=== PATIENT | female | born 1980 | race Caucasian/White ===

== ENCOUNTER 2016-11-25 03:44 | Emergency (ER) | payer SELFPAY ==
[~2016-11-25] VITALS: Ht 152.4 cm; Wt 66.0 kg
[~2016-11-25 03:44] MED LIST: ALBU8.5H IH; ASPI81 PO; DICL50TA9 PO; IBUP-2070 PO; OMEP20 PO; SERT50TA12 PO
[2016-11-25] MEDS ORDERED: PROCHLORPERAZINE EDISYLATE 5 MG/ML 2 ML VIAL IVP ONE (04:15)
[2016-11-25] MEDS ORDERED: HYDROmorphone 2 MG/ML SYRINGE IVP ONE (04:15)
[2016-11-25] MEDS ORDERED: SODIUM CHLORIDE 0.9% 1,000 ML IV ONE (04:15)
[2016-11-25 04:22] LABS: BASOPHILS # (AUTO) 0.02 K/uL (0.00-0.20); BASOPHILS % (AUTO) 0.2 % (0.0-2.0); EOSINOPHILS % (AUTO) 0.04 % (1.0-6.0); HEMATOCRIT 42.3 % (36-46); HEMOGLOBIN 14.1 g/dL (12.0-16.0); LYMPHOCYTES # (AUTO) 0.8 K/uL (1.0-4.8); LYMPHOCYTES % (AUTO) 6.8 % (22.0-44.0); MEAN CORPUSCULAR HEMOGLOBIN 28.7 pg (26.0-34.0); MEAN CORPUSCULAR HGB CONC 33.3 G/dL (31.0-37.0); MEAN CORPUSCULAR VOLUME 86 fL (80-100); MONOCYTES # (AUTO) 0.4 K/uL (0.1-1.0); MONOCYTES % (AUTO) 3.2 % (2.0-9.0); NEUTROPHILS # (AUTO) 10.9 K/uL (1.8-7.7); PLATELET COUNT (AUTO) 154 K/uL (150-450); RED CELL DISTRIBUTION WIDTH 14.5 % (11.5-14.5); WHITE BLOOD COUNT (AUTO) 12.1 K/uL (4.5-11.0)
[2016-11-25 04:27] LABS: NEUTROPHILS % (AUTO) 89.8 % (40.0-70.0)
[2016-11-25 04:34] LABS: ANION GAP 8 mmol/L (8-16); CALCIUM, TOTAL 8.7 mg/dL (8.8-10.5); CARBON DIOXIDE 26 mmol/L (22-29); CHLORIDE 103 mmol/L (98-107); CREATININE 0.86 mg/dL (0.60-1.30); GLOMERULAR FILTR. RATE CALC > 60 mL/min (>60); POTASSIUM 3.1 mmol/L (3.5-5.1); SODIUM SERUM 137 mmol/L (136-145); UREA NITROGEN, BLOOD 10 mg/dL (7-18)
[2016-11-25 04:42] LABS: ALANINE AMINOTRANSFERASE 25 U/L (12-78); ALBUMIN 3.8 g/dL (3.4-5.0); AMYLASE 58 U/L (25-115); ASPARTATE AMINOTRANSFERASE 17 U/L (15-37); BILIRUBIN,TOTAL 0.5 mg/dL (0.1-1.0); TOTAL PROTEIN, SERUM 7.7 g/dL (6.4-8.2)
[2016-11-25] MEDS ORDERED: PANTOPRAZOLE SODIUM 40 MG/VIAL IVP ONE (06:45)
[2016-11-25 08:08] LABS: APPEARANCE,URINE CLOUDY (CLEAR); GLUCOSE, URINE (UA) NEGATIVE (NEGATIVE); KETONES,URINE 40 mg/dL (NEGATIVE); LEUKOCYTE ESTERASE ,URINE SMALL (NEGATIVE); OCCULT BLOOD,URINE NEGATIVE (NEGATIVE); PROTEIN,URINE POS 1+ (NEGATIVE)
[2016-11-25 08:15] LABS: ADD UA MICROSCOPIC YES
[2016-11-25 08:26] LABS: RBC,URINE 0-2 /HPF (0-2); SQUAMOUS EPITHELIAL CELL,UR Many /LPF (None Seen)
[2016-11-25] MEDS ORDERED: MAG HYDROX/AL HYDROX/SIMETH ES 30 ML SUSPENSION UDCUP PO ONE (10:00)
[2016-11-25 11:16] VITALS: BP 110/70
== END 2016-11-25 11:49 | disposition home or self-care (01) ==
LOC: EMS 03:45
DX: K27.9 Peptic ulcer, site unspecified, unspecified as acute or chronic, without hemorrhage or perforation (principal); K29.00 Acute gastritis without bleeding; J45.909 Unspecified asthma, uncomplicated; Z86.73 Personal history of transient ischemic attack (TIA), and cerebral infarction without residual deficits; N83.209 Unspecified ovarian cyst, unspecified side; Z88.6 Allergy status to analgesic agent
CPT/HCPCS: 36415; 74176; 80053; 81001; 82150; 83690; 84703; 85025; 87086; 96361; 96374; 96375; 99285; C9113; J0780; J1170; J7030

== ENCOUNTER 2019-04-29 01:08 | Emergency (ER) | payer OTHER ==
[~2019-04-29] VITALS: Ht 152.4 cm; Wt 76.4 kg
[~2019-04-29 01:08] MED LIST changes: -ALBU8.5H IH; +ALBU8.5H8 IH; -ASPI81 PO; -DICL50TA9 PO; -IBUP-2070 PO; -OMEP20 PO; -SERT50TA12 PO
[2019-04-29 01:53] LABS: APPEARANCE,URINE CLEAR (CLEAR); BILIRUBIN,URINE NEGATIVE (NEGATIVE); GLUCOSE, URINE (UA) NEGATIVE (NEGATIVE); KETONES,URINE NEGATIVE (NEGATIVE); LEUKOCYTE ESTERASE ,URINE TRACE (NEGATIVE); NITRATE,URINE NEGATIVE (NEGATIVE); OCCULT BLOOD,URINE NEGATIVE (NEGATIVE); PROTEIN,URINE NEGATIVE (NEGATIVE); UROBILINOGEN,URINE 0.2 mg/dL (<=1.0)
[2019-04-29 02:01] LABS: BACTERIA,URINE None Seen /HPF (None Seen); RBC,URINE None Seen /HPF (0-2); SQUAMOUS EPITHELIAL CELL,UR Rare /LPF (None Seen)
[2019-04-29 02:19] LABS: BASOPHILS % (AUTO) 0.6 % (0.0-2.0); EOSINOPHILS % (AUTO) 5.6 % (1.0-6.0); HEMATOCRIT 39.9 % (36-46); HEMOGLOBIN 13.5 g/dL (12.0-16.0); LYMPHOCYTES # (AUTO) 2.4 K/uL (1.0-4.8); MEAN CORPUSCULAR HEMOGLOBIN 29.9 pg (26.0-34.0); MEAN CORPUSCULAR HGB CONC 33.9 G/dL (31.0-37.0); MEAN CORPUSCULAR VOLUME 88 fL (80-100); MONOCYTES # (AUTO) 0.6 K/uL (0.1-1.0); MONOCYTES % (AUTO) 8.2 % (2.0-9.0); NEUTROPHILS # (AUTO) 3.8 K/uL (1.8-7.7); NEUTROPHILS % (AUTO) 52.6 % (40.0-70.0); PLATELET COUNT (AUTO) 216 K/uL (150-450); RED BLOOD CELL COUNT(AUTO) 4.53 MIL/uL (4.00-5.20)
[2019-04-29 02:40] LABS: ANION GAP 8 mmol/L (8-16); CALCIUM, TOTAL 8.6 mg/dL (8.8-10.5); CARBON DIOXIDE 27 mmol/L (22-29); CHLORIDE 105 mmol/L (98-107); CREATININE 0.51 mg/dL (0.60-1.30); GLOMERULAR FILTR. RATE CALC > 60 mL/min (>60); GLUCOSE,RANDOM 102 mg/dL (70-110); POTASSIUM 3.4 mmol/L (3.5-5.1); SODIUM SERUM 140 mmol/L (136-145); UREA NITROGEN, BLOOD 14 mg/dL (7-18)
[2019-04-29 02:51] LABS: ALANINE AMINOTRANSFERASE 41 U/L (12-78); ALBUMIN 3.4 g/dL (3.4-5.0); ALKALINE PHOSPHATASE 100 U/L (46-116); ASPARTATE AMINOTRANSFERASE 21 U/L (15-37); BILIRUBIN,TOTAL 0.2 mg/dL (0.1-1.0); HCG,QUANTITATIVE < 1 mIU/mL (0-6); LIPASE 125 U/L (73-393); TOTAL PROTEIN, SERUM 6.9 g/dL (6.4-8.2)
[2019-04-29] MEDS ORDERED: KETOROLAC TROMETHAMINE 30 MG/ML VIAL IVP ONE (03:15)
[2019-04-29] MEDS ORDERED: HYDROmorphone 2 MG/ML SYRINGE IVP ONE (03:15)
[2019-04-29] MEDS ORDERED: ONDANSETRON HCL 4 MG/2 ML VIAL IVP ONE (03:15)
[2019-04-29] MEDS ORDERED: SODIUM CHLORIDE 0.9% 1,000 ML IV ONE (03:15)
[2019-04-29] MEDS ORDERED: MAG HYDROX/AL HYDROX/SIMETH ES 30 ML SUSPENSION UDCUP PO ONE (04:45)
[2019-04-29] MEDS ORDERED: POTASSIUM CHLORIDE 10% 40 MEQ/30 ML LIQUID UDCUP PO ONE (04:45)
[2019-04-29 04:50] VITALS: BP 103/74
== END 2019-04-29 05:35 | disposition home or self-care (01) ==
LOC: EMS 01:08
DX: E86.0 Dehydration (principal); R10.30 Lower abdominal pain, unspecified
CPT/HCPCS: 36415; 74176; 80053; 81001; 83690; 84702; 85025; 96361; 96374; 96375; 99284; J1170; J1885; J2405; J7030

== ENCOUNTER 2019-07-30 18:46 | Emergency (ER) | payer OTHER ==
[~2019-07-30] VITALS: Ht 152.4 cm; Wt 75.0 kg
[2019-07-30 18:49] VITALS: BP 116/72
[2019-07-30] MEDS ORDERED: [UNRECOGNIZED DRUG - REMARK] PO (18:57)
[2019-07-30 22:29] LABS: BASOPHILS % (AUTO) 0.4 % (0.0-2.0); EOSINOPHILS % (AUTO) 4.6 % (1.0-6.0); HEMATOCRIT 40.4 % (36-46); HEMOGLOBIN 13.9 g/dL (12.0-16.0); LYMPHOCYTES # (AUTO) 2.8 K/uL (1.0-4.8); MEAN CORPUSCULAR HEMOGLOBIN 29.4 pg (26.0-34.0); MEAN CORPUSCULAR HGB CONC 34.3 G/dL (31.0-37.0); MEAN CORPUSCULAR VOLUME 86 fL (80-100); MONOCYTES # (AUTO) 0.4 K/uL (0.1-1.0); MONOCYTES % (AUTO) 5.6 % (2.0-9.0); NEUTROPHILS # (AUTO) 3.8 K/uL (1.8-7.7); NEUTROPHILS % (AUTO) 51.4 % (40.0-70.0); PLATELET COUNT (AUTO) 253 K/uL (150-450); RED BLOOD CELL COUNT(AUTO) 4.71 MIL/uL (4.00-5.20); RED CELL DISTRIBUTION WIDTH 12.6 % (11.5-14.5)
[2019-07-30 22:38] LABS: ANION GAP 5 mmol/L (8-16); CALCIUM, TOTAL 8.8 mg/dL (8.8-10.5); CARBON DIOXIDE 30 mmol/L (22-29); CHLORIDE 106 mmol/L (98-107); CREATININE 0.87 mg/dL (0.60-1.30); GLOMERULAR FILTR. RATE CALC > 60 mL/min (>60); GLUCOSE,RANDOM 99 mg/dL (70-110); POTASSIUM 3.8 mmol/L (3.5-5.1); SODIUM SERUM 141 mmol/L (136-145); UREA NITROGEN, BLOOD 14 mg/dL (7-18)
[2019-07-30 22:49] LABS: ALANINE AMINOTRANSFERASE 23 U/L (12-78); ALBUMIN 3.7 g/dL (3.4-5.0); ALKALINE PHOSPHATASE 101 U/L (46-116); ASPARTATE AMINOTRANSFERASE 15 U/L (15-37); BILIRUBIN,TOTAL 0.2 mg/dL (0.1-1.0); HCG,QUANTITATIVE 1 mIU/mL (0-6); LIPASE 144 U/L (73-393); TOTAL PROTEIN, SERUM 7.6 g/dL (6.4-8.2)
== END 2019-07-31 | disposition left against medical advice (07) ==
LOC: EMS 18:46
DX: R10.9 Unspecified abdominal pain (principal); Z53.21 Procedure and treatment not carried out due to patient leaving prior to being seen by health care provider

== ENCOUNTER 2021-12-27 20:15 | Emergency (ER) | payer OTHER ==
[~2021-12-27] VITALS: Ht 167.6 cm; Wt 77.3 kg
[~2021-12-27 20:15] MED LIST changes: -ALBU8.5H8 IH; +[UNRECOGNIZED DRUG - REMARK] PO
[2021-12-27] MEDS ORDERED: ALBU8HFA IH (20:22)
[2021-12-27 20:49] LABS: BASOPHILS % (AUTO) 0.5 % (0.0-2.0); EOSINOPHILS % (AUTO) 2.9 % (1.0-6.0); HEMATOCRIT 39.8 % (36-46); HEMOGLOBIN 13.8 g/dL (12.0-16.0); LYMPHOCYTES # (AUTO) 2.2 K/uL (1.0-4.8); LYMPHOCYTES % (AUTO) 26.5 % (22.0-44.0); MEAN CORPUSCULAR HEMOGLOBIN 29.8 pg (26.0-34.0); MEAN CORPUSCULAR HGB CONC 34.7 G/dL (31.0-37.0); MEAN CORPUSCULAR VOLUME 86 fL (80-100); MONOCYTES # (AUTO) 0.4 K/uL (0.1-1.0); MONOCYTES % (AUTO) 5.2 % (2.0-9.0); NEUTROPHILS # (AUTO) 5.4 K/uL (1.8-7.7); NEUTROPHILS % (AUTO) 64.9 % (40.0-70.0); PLATELET COUNT (AUTO) 265 K/uL (150-450); RED BLOOD CELL COUNT(AUTO) 4.63 MIL/uL (4.00-5.20); RED CELL DISTRIBUTION WIDTH 13.6 % (11.5-14.5)
[2021-12-27 20:55] LABS: ANION GAP 6 mmol/L (8-16); CALCIUM, TOTAL 9.4 mg/dL (8.8-10.5); CARBON DIOXIDE 29 mmol/L (22-29); CHLORIDE 104 mmol/L (98-107); CREATININE 0.76 mg/dL (0.60-1.30); GLUCOSE,RANDOM 131 mg/dL (70-110); SODIUM SERUM 139 mmol/L (136-145); UREA NITROGEN, BLOOD 14 mg/dL (7-18)
[2021-12-27 20:56] LABS: GLOMERULAR FILTR. RATE CALC > 60 mL/min (>60)
[2021-12-27 21:00] LABS: ALANINE AMINOTRANSFERASE 63 U/L (12-78); ALBUMIN 3.8 g/dL (3.4-5.0); ALKALINE PHOSPHATASE 107 U/L (46-116); ASPARTATE AMINOTRANSFERASE 27 U/L (15-37); BILIRUBIN,TOTAL 0.3 mg/dL (0.1-1.0); TOTAL PROTEIN, SERUM 7.5 g/dL (6.4-8.2)
[2021-12-27] MEDS ORDERED: IBUP-2070 PO (22:36)
[2021-12-27] MEDS ORDERED: ACET-66 PO (22:36)
[2021-12-27] MEDS ORDERED: LIDO700A15 TP (22:36)
[2021-12-27] MEDS ORDERED: KETOROLAC TROMETHAMINE 30 MG/ML VIAL IM ONE (22:45)
[2021-12-27 23:00] VITALS: BP 139/70
== END 2021-12-27 23:02 | disposition home or self-care (01) ==
LOC: EMS 20:17
DX: R07.89 Other chest pain (principal); J45.909 Unspecified asthma, uncomplicated; Z86.73 Personal history of transient ischemic attack (TIA), and cerebral infarction without residual deficits; Z87.42 Personal history of other diseases of the female genital tract; Z98.890 Other specified postprocedural states; Z88.5 Allergy status to narcotic agent
CPT/HCPCS: 99285; 71045; 80053; 84484; 85025; 36415; 93005; 96372; J1885

== ENCOUNTER 2023-09-13 03:00 | Emergency (ER) | payer OTHER ==
[~2023-09-13] VITALS: Ht 152.4 cm; Wt 79.5 kg
[~2023-09-13 03:00] MED LIST changes: +ACET-66 PO; +ALBU18HF12 IH; +IBUP-1492 PO; +LIDO700A15 TP
[2023-09-13 03:05] VITALS: TEMP 98.2
[2023-09-13 03:32] LABS: APPEARANCE,URINE CLEAR (CLEAR); BILIRUBIN,URINE NEGATIVE (NEGATIVE); COLOR,URINE LIGHT YELLOW (YELLOW); GLUCOSE, URINE (UA) NEGATIVE (NEGATIVE); KETONES,URINE NEGATIVE (NEGATIVE); LEUKOCYTE ESTERASE ,URINE NEGATIVE (NEGATIVE); NITRATE,URINE NEGATIVE (NEGATIVE); OCCULT BLOOD,URINE NEGATIVE (NEGATIVE); PH,URINE 6.5 (5.0-8.0); PROTEIN,URINE NEGATIVE (NEGATIVE); SPECIFIC GRAVITIY, URINE 1.015 (1.003-1.030); UROBILINOGEN,URINE <=1.0 mg/dL (<=1.0)
[2023-09-13] MEDS: SODIUM CHLORIDE 0.9% 1,000 ML IV ONE (04:20)
[2023-09-13] MEDS: KETOROLAC TROMETHAMINE 30 MG/ML VIAL IVP ONE (04:20)
[2023-09-13 04:21] LABS: BASOPHILS % (AUTO) 0.3 % (0.0-2.0); EOSINOPHILS % (AUTO) 3.9 % (1.0-6.0); HEMATOCRIT 38.9 % (36-46); HEMOGLOBIN 13.6 g/dL (12.0-16.0); LYMPHOCYTES # (AUTO) 2.5 K/uL (1.0-4.8); LYMPHOCYTES % (AUTO) 33.3 % (22.0-44.0); MEAN CORPUSCULAR HEMOGLOBIN 30.8 pg (26.0-34.0); MEAN CORPUSCULAR VOLUME 88 fL (80-100); MONOCYTES # (AUTO) 0.6 K/uL (0.1-1.0); MONOCYTES % (AUTO) 7.8 % (2.0-9.0); NEUTROPHILS # (AUTO) 4.1 K/uL (1.8-7.7); NEUTROPHILS % (AUTO) 54.7 % (40.0-70.0); PLATELET COUNT (AUTO) 235 K/uL (150-450); RED BLOOD CELL COUNT(AUTO) 4.42 MIL/uL (4.00-5.20); RED CELL DISTRIBUTION WIDTH 13.5 % (11.5-14.5); WHITE BLOOD COUNT (AUTO) 7.5 K/uL (4.5-11.0)
[2023-09-13 04:29] LABS: ANION GAP 10 mmol/L (8-16); CALCIUM, TOTAL 8.8 mg/dL (8.8-10.5); CARBON DIOXIDE 26 mmol/L (22-29); CHLORIDE 104 mmol/L (98-107); CREATININE 0.64 mg/dL (0.60-1.30); GLOMERULAR FILTR. RATE CALC > 60 mL/min (>60); GLUCOSE,RANDOM 146 mg/dL (70-110); POTASSIUM 3.6 mmol/L (3.5-5.1); SODIUM SERUM 140 mmol/L (136-145); UREA NITROGEN, BLOOD 10 mg/dL (7-18)
[2023-09-13 04:37] LABS: TROPONIN I-HIGH SENSITIVITY 8 ng/L (<51)
[2023-09-13 04:42] LABS: ALANINE AMINOTRANSFERASE 64 U/L (12-78); ALBUMIN 3.4 g/dL (3.4-5.0); ALKALINE PHOSPHATASE 119 U/L (46-116); ASPARTATE AMINOTRANSFERASE 30 U/L (15-37); BILIRUBIN,TOTAL 0.4 mg/dL (0.1-1.0); HCG,QUANTITATIVE < 1 mIU/mL (0-6); LIPASE 29 U/L (16-77); TOTAL PROTEIN, SERUM 7.1 g/dL (6.4-8.2)
[2023-09-13] MEDS ORDERED: IBUP-1492 PO (07:04)
[2023-09-13] MEDS ORDERED: ACET-3385 PO (07:04)
[2023-09-13 07:15] VITALS: BP 110/71; PULSE 68; RESP 17
== END 2023-09-13 07:18 | disposition home or self-care (01) ==
LOC: EMS 03:00
DX: R10.32 Left lower quadrant pain (principal); J45.909 Unspecified asthma, uncomplicated; Z88.5 Allergy status to narcotic agent
CPT/HCPCS: 99285; 74176; 96374; 96361; 80053; 81003; 83690; 84484; 84702; 85025; 36415; 93005; J1885

== ENCOUNTER 2024-05-28 02:51 | Emergency (ER) | payer OTHER ==
[~2024-05-28] VITALS: Ht 152.4 cm; Wt 86.4 kg
[~2024-05-28 02:51] MED LIST changes: +ACET-3385 PO
[2024-05-28 02:55] VITALS: BP 113/66; PULSE 71; RESP 18; TEMP 98.4; O2SAT 100
[2024-05-28] MEDS: KETOROLAC TROMETHAMINE 30 MG/ML VIAL IM ONE (03:47)
[2024-05-28] MEDS ORDERED: TRAM50TA5 PO (03:51)
[2024-05-28] MEDS ORDERED: IBUP-1492 PO (03:51)
== END 2024-05-28 03:58 | disposition home or self-care (01) ==
LOC: EMS 02:52
DX: M79.605 Pain in left leg (principal); J45.909 Unspecified asthma, uncomplicated; Z88.5 Allergy status to narcotic agent
CPT/HCPCS: 99283; 96372; J1885

== ENCOUNTER 2025-04-10 09:28 | Emergency (ER) | payer OTHER ==
[~2025-04-10] VITALS: Ht 152.4 cm; Wt 86.0 kg
[~2025-04-10 09:28] MED LIST changes: +LIDO-57 TP; -LIDO700A15 TP; +TRAM50TA5 PO
[2025-04-10 09:36] VITALS: TEMP 98.1
[2025-04-10 09:50] VITALS: BP 108/57; PULSE 64; RESP 18; O2SAT 98
== END 2025-04-10 10:55 | disposition left against medical advice (07) ==
LOC: EMS 09:36
DX: N64.4 Mastodynia (principal); Z53.21 Procedure and treatment not carried out due to patient leaving prior to being seen by health care provider
CPT/HCPCS: 99281; Z7502